=== PATIENT | male | born 1960 | race Two or more races ===

== ENCOUNTER 2017-03-10 19:05 | Emergency (ER) | payer OTHER ==
[~2017-03-10] VITALS: Ht 177.8 cm; Wt 86.2 kg
[~2017-03-10 19:05] MED LIST: BONINE25 MG; CELEBREX100 MG PO; SPECTAZOLE TP
== END 2017-03-10 20:28 | disposition home or self-care (01) ==
LOC: ER 19:05
DX: B34.9 Viral infection, unspecified (principal)

== ENCOUNTER 2018-08-27 12:27 | Outpatient (CLI) | payer OTHER | END 2018-08-27 12:52 | disposition home or self-care (01) | LOC: RAD 12:27 | DX: M17.0 Bilateral primary osteoarthritis of knee (principal) ==

== ENCOUNTER 2019-09-24 16:11 | Emergency (ER) | payer OTHER ==
[~2019-09-24] VITALS: Ht 177.8 cm; Wt 80.7 kg
== END 2019-09-24 17:36 | disposition home or self-care (01) ==
LOC: ER 16:11
DX: H66.91 Otitis media, unspecified, right ear (principal); J11.1 Influenza due to unidentified influenza virus with other respiratory manifestations

== ENCOUNTER 2021-05-25 12:56 | Emergency (ER) | payer OTHER ==
[~2021-05-25] VITALS: Ht 177.8 cm; Wt 86.2 kg
[2021-05-25] MEDS ORDERED: OSEL75CA PO (16:57)
== END 2021-05-25 18:05 | disposition home or self-care (01) ==
LOC: ER 12:56
DX: J10.1 Influenza due to other identified influenza virus with other respiratory manifestations (principal); Z20.822 Contact with and (suspected) exposure to COVID-19

== ENCOUNTER 2021-06-21 11:05 | Outpatient (CLI) | payer OTHER ==
[~2021-06-21 11:05] MED LIST changes: +OSEL75CA PO
== END 2021-06-21 11:10 | disposition home or self-care (01) ==
LOC: LAB 11:05
PROVIDERS: ATTEND Family Medicine Geriatric Medicine
DX: D64.9 Anemia, unspecified (principal); G89.29 Other chronic pain; D50.8 Other iron deficiency anemias; D51.1 Vitamin B12 deficiency anemia due to selective vitamin B12 malabsorption with proteinuria; D51.3 Other dietary vitamin B12 deficiency anemia; D52.0 Dietary folate deficiency anemia; K29.00 Acute gastritis without bleeding; C61 Malignant neoplasm of prostate; D40.0 Neoplasm of uncertain behavior of prostate; E78.9 Disorder of lipoprotein metabolism, unspecified; D41.9 Neoplasm of uncertain behavior of unspecified urinary organ; D13.9 Benign neoplasm of ill-defined sites within the digestive system; E11.65 Type 2 diabetes mellitus with hyperglycemia; Z79.01 Long term (current) use of anticoagulants; Z13.228 Encounter for screening for other metabolic disorders; Z01.89 Encounter for other specified special examinations; Z12.11 Encounter for screening for malignant neoplasm of colon; E10.9 Type 1 diabetes mellitus without complications; E03.9 Hypothyroidism, unspecified; R73.9 Hyperglycemia, unspecified; D69.9 Hemorrhagic condition, unspecified; M10.9 Gout, unspecified; J30.0 Vasomotor rhinitis; R97.8 Other abnormal tumor markers; Z85.46 Personal history of malignant neoplasm of prostate; N39.0 Urinary tract infection, site not specified; I25.119 Atherosclerotic heart disease of native coronary artery with unspecified angina pectoris; I25.700 Atherosclerosis of coronary artery bypass graft(s), unspecified, with unstable angina pectoris; I25.799 Atherosclerosis of other coronary artery bypass graft(s) with unspecified angina pectoris; Z13.6 Encounter for screening for cardiovascular disorders; Z11.3 Encounter for screening for infections with a predominantly sexual mode of transmission

== ENCOUNTER 2021-06-27 08:00 | Outpatient (CLI) | payer OTHER | END 2021-06-27 08:01 | disposition home or self-care (01) | LOC: LAB 08:00 | PROVIDERS: ATTEND Family Medicine Geriatric Medicine | DX: D64.9 Anemia, unspecified (principal); G89.29 Other chronic pain; E55.9 Vitamin D deficiency, unspecified; D41.9 Neoplasm of uncertain behavior of unspecified urinary organ; D13.9 Benign neoplasm of ill-defined sites within the digestive system; E11.65 Type 2 diabetes mellitus with hyperglycemia; D69.9 Hemorrhagic condition, unspecified; M10.9 Gout, unspecified; J30.0 Vasomotor rhinitis; R97.8 Other abnormal tumor markers; D50.8 Other iron deficiency anemias; D51.1 Vitamin B12 deficiency anemia due to selective vitamin B12 malabsorption with proteinuria; D51.3 Other dietary vitamin B12 deficiency anemia; D52.0 Dietary folate deficiency anemia; K29.00 Acute gastritis without bleeding; C61 Malignant neoplasm of prostate; D40.0 Neoplasm of uncertain behavior of prostate; E78.9 Disorder of lipoprotein metabolism, unspecified; Z79.01 Long term (current) use of anticoagulants; Z11.3 Encounter for screening for infections with a predominantly sexual mode of transmission; Z13.228 Encounter for screening for other metabolic disorders; Z01.89 Encounter for other specified special examinations; Z12.11 Encounter for screening for malignant neoplasm of colon; E10.9 Type 1 diabetes mellitus without complications; E03.9 Hypothyroidism, unspecified; R73.9 Hyperglycemia, unspecified; Z13.6 Encounter for screening for cardiovascular disorders; I25.799 Atherosclerosis of other coronary artery bypass graft(s) with unspecified angina pectoris; I25.700 Atherosclerosis of coronary artery bypass graft(s), unspecified, with unstable angina pectoris; I25.119 Atherosclerotic heart disease of native coronary artery with unspecified angina pectoris; I25.10 Atherosclerotic heart disease of native coronary artery without angina pectoris; N39.0 Urinary tract infection, site not specified; Z85.46 Personal history of malignant neoplasm of prostate ==

== ENCOUNTER 2021-07-01 09:51 | Outpatient (CLI) | payer OTHER | END 2021-07-01 10:02 | disposition home or self-care (01) | LOC: MRI 09:51 | DX: G43.711 Chronic migraine without aura, intractable, with status migrainosus (principal) | CPT/HCPCS: 70551 ==

== ENCOUNTER 2021-07-10 07:42 | Outpatient (CLI) | payer OTHER | END 2021-07-10 07:54 | disposition home or self-care (01) | LOC: RAD 07:42 | PROVIDERS: ATTEND Family Medicine Geriatric Medicine | DX: J32.0 Chronic maxillary sinusitis (principal); J01.00 Acute maxillary sinusitis, unspecified; J45.902 Unspecified asthma with status asthmaticus; R05.1 Acute cough; R07.1 Chest pain on breathing; R10.84 Generalized abdominal pain; N20.0 Calculus of kidney; G44.89 Other headache syndrome ==

== ENCOUNTER 2021-07-19 11:13 | Outpatient (CLI) | payer OTHER | END 2021-07-19 11:16 | disposition home or self-care (01) | LOC: LAB 11:13 | DX: D64.9 Anemia, unspecified (principal); N17.9 Acute kidney failure, unspecified; E03.8 Other specified hypothyroidism; M31.6 Other giant cell arteritis ==

== ENCOUNTER 2021-10-09 15:16 | Emergency (ER) | payer OTHER ==
[~2021-10-09] VITALS: Ht 177.8 cm; Wt 79.4 kg
== END 2021-10-09 19:29 | disposition home or self-care (01) ==
LOC: ER 15:16
DX: R51.9 Headache, unspecified (principal); Z20.822 Contact with and (suspected) exposure to COVID-19

== ENCOUNTER 2023-01-20 08:46 | Outpatient (CLI) | payer OTHER ==
[2023-01-20 09:51] LABS: HEMATOCRIT 43.5 % (39.0-48.0); HEMOGLOBIN 14.9 g/dL (13-16.00); MEAN CELL VOLUME 98.6 fL (80.0-100.00); MEAN CORPUSCULAR HEMOGLOBIN 33.7 pg (27.00-32.0); MEAN CORPUSCULAR HGB CONC 34.2 g/dl (32.0-36.0); PLATELET COUNT 207 K/uL (150-450); RED BLOOD COUNT 4.41 M/uL (4.00-6.00); RED CELL DISTRIBUTION WIDTH 13.2 % (11.5-14.5)
[2023-01-20 10:33] LABS: ERYTHROCYTE SEDIMENTATION RATE 2 mm/hr
[2023-01-20 10:44] LABS: ALBUMIN 4.2 gm/dL (3.4-5.0); ALKALINE PHOSPHATASE 83 U/L (50-136); ALT/SGPT 34 U/L (12-78); ANION GAP 9 (10.0-20.0); AST/SGOT 21 U/L (15-37); BILIRUBIN TOTAL 0.34 mg/dL (0.3-1.2); BLOOD UREA NITROGEN 26 mg/dL (7-18); BUN CREA RATIO 32 (7.0-25.0); CALCIUM 9.2 mg/dL (8.5-10.1); CARBON DIOXIDE 28 mEq/L (21-32); CHLORIDE 105 mmol/L (98-107); CHOL HDL RATIO 2.2 (0-5.0); CHOLESTEROL 219 mg/dL (0-200); CREATININE SERUM 0.82 mg/dL (0.70-1.30); GFR 95.83; GLUCOSE FASTING 99 mg/dL (65-100); HDL 99 mg/dl (40-60); LDL 111 mg/dl (0-130); OSMOLALITY SERUM 280 MOSM/KG (275-295); PHOSPHOKINASE CREATININE 143 U/L (39-308); POTASSIUM 3.85 mEq/L (3.5-5.1); PROSTATIC SPECIFIC ANTIGEN 0.811 NG/ML (0.010-4.00); SODIUM 138 mmol/L (136-145); T4 TOTAL 8.04 UG/DL (4.5-12.1); TOTAL PROTEIN 7.2 gm/dL (6.4-8.2); TRIGLYCERIDES 47 mg/dL (0-150); TSH 0.944 uIU/mL (0.358-3.74); VLDL 9 (0-39)
[2023-01-20 10:47] LABS: C-REACTIVE PROTEIN < 0.29 MG/DL (0.00-0.29)
[2023-01-20 12:31] LABS: PH,URINE 5.5 (5.0-8.0); URINE APPEARANCE Clear; URINE BILIRRUBIN Negative (NEGATIVE); URINE BLOOD Negative; URINE COLOR Yellow; URINE GLUCOSE Negative (NEGATIVE); URINE LEUKOCYTE Negative; URINE NITRATE Negative; URINE PROTEIN Negative (NEGATIVE); URINE UROBILINOGEN 0.2 E.U./dl
[2023-01-20 12:32] LABS: URINE WBC 2.3 uL (0.0-23.2)
[2023-01-20 12:40] LABS: URINE BACTERIA 1.2 uL (0.0-1933); URINE EPITHELIAL CELLS 0.3 uL (0.0-38.8); URINE RBC 0.7 uL (0.0-20.8)
[2023-01-20 14:37] LABS: FOLIC ACID 17.82 ng/ml (4.78-20); T3 TOTAL 0.942 ng/ml (0.846-2.02); VITAMIN D3 25 HYDROXY 90.02 ng/ml (30-120)
[2023-01-21 06:06] LABS: CA 19-9 10 U/mL (0-35)
[2023-01-21 10:11] LABS: HOMOCYSTEINE 12.8 umol/L (0.0-14.5)
== END 2023-01-20 08:47 | disposition home or self-care (01) ==
LOC: LAB 08:46
DX: D64.9 Anemia, unspecified (principal); G89.29 Other chronic pain; E55.9 Vitamin D deficiency, unspecified; D50.8 Other iron deficiency anemias; D51.3 Other dietary vitamin B12 deficiency anemia

== ENCOUNTER 2023-01-21 09:46 | Outpatient (CLI) | payer OTHER ==
[2023-01-21 11:11] LABS: ob NEGATIVE (NEGATIVE)
== END 2023-01-21 09:56 | disposition home or self-care (01) ==
LOC: LAB 09:46
PROVIDERS: ATTEND Family Medicine Geriatric Medicine
DX: Z01.89 Encounter for other specified special examinations (principal); D64.9 Anemia, unspecified; G89.29 Other chronic pain; E55.9 Vitamin D deficiency, unspecified; D50.8 Other iron deficiency anemias; D51.1 Vitamin B12 deficiency anemia due to selective vitamin B12 malabsorption with proteinuria; D51.3 Other dietary vitamin B12 deficiency anemia; D52.0 Dietary folate deficiency anemia; K29.00 Acute gastritis without bleeding; C61 Malignant neoplasm of prostate; D40.0 Neoplasm of uncertain behavior of prostate; E78.9 Disorder of lipoprotein metabolism, unspecified; D41.9 Neoplasm of uncertain behavior of unspecified urinary organ; E11.65 Type 2 diabetes mellitus with hyperglycemia; Z79.01 Long term (current) use of anticoagulants; Z11.3 Encounter for screening for infections with a predominantly sexual mode of transmission; Z13.228 Encounter for screening for other metabolic disorders; Z12.11 Encounter for screening for malignant neoplasm of colon; E03.9 Hypothyroidism, unspecified; D69.9 Hemorrhagic condition, unspecified; M10.9 Gout, unspecified; J30.0 Vasomotor rhinitis; R97.8 Other abnormal tumor markers; Z85.46 Personal history of malignant neoplasm of prostate; N39.0 Urinary tract infection, site not specified; I25.10 Atherosclerotic heart disease of native coronary artery without angina pectoris; I25.119 Atherosclerotic heart disease of native coronary artery with unspecified angina pectoris; I25.700 Atherosclerosis of coronary artery bypass graft(s), unspecified, with unstable angina pectoris; I25.799 Atherosclerosis of other coronary artery bypass graft(s) with unspecified angina pectoris; Z13.6 Encounter for screening for cardiovascular disorders; J45.40 Moderate persistent asthma, uncomplicated

== ENCOUNTER 2023-01-21 10:29 | Outpatient (CLI) | payer OTHER | END 2023-01-21 10:43 | disposition home or self-care (01) | LOC: SONOGRAMA 10:29 | PROVIDERS: ATTEND Family Medicine Geriatric Medicine | DX: J32.0 Chronic maxillary sinusitis (principal); J01.00 Acute maxillary sinusitis, unspecified; J45.902 Unspecified asthma with status asthmaticus; R05.8 Other specified cough; R07.1 Chest pain on breathing; R10.9 Unspecified abdominal pain; R10.2 Pelvic and perineal pain; R10.84 Generalized abdominal pain; N20.0 Calculus of kidney; G44.89 Other headache syndrome; R13.0 Aphagia; R31.9 Hematuria, unspecified ==